=== PATIENT | male | born 1960 | race Two or more races ===

== ENCOUNTER 2019-12-12 08:50 | Outpatient (CLI) | payer OTHER | END 2019-12-12 09:00 | disposition home or self-care (01) | LOC: LAB 08:50 | DX: N20.0 Calculus of kidney (principal) ==

== ENCOUNTER → 2019-12-12 | Outpatient (CLI) | payer OTHER | END | disposition home or self-care (01) | LOC: MRI 08:08 | DX: R10.13 Epigastric pain (principal); R19.5 Other fecal abnormalities; K62.5 Hemorrhage of anus and rectum; Z86.010 Personal history of colon polyps; R63.4 Abnormal weight loss | CPT/HCPCS: 74183 ==

== ENCOUNTER → 2020-01-30 06:36 | Outpatient (CLI) | payer OTHER ==
[~2020-01-30 06:36] MED LIST: OMEPRAZOLE40 MG
== END | disposition home or self-care (01) ==
LOC: LAB 06:36
DX: D50.8 Other iron deficiency anemias (principal); I10 Essential (primary) hypertension; D68.8 Other specified coagulation defects; D69.1 Qualitative platelet defects; R97.8 Other abnormal tumor markers; C25.9 Malignant neoplasm of pancreas, unspecified; R97.0 Elevated carcinoembryonic antigen [CEA]; R97.20 Elevated prostate specific antigen [PSA]; R77.2 Abnormality of alphafetoprotein; B20 Human immunodeficiency virus [HIV] disease; K74.69 Other cirrhosis of liver; B18.2 Chronic viral hepatitis C; K29.70 Gastritis, unspecified, without bleeding

== ENCOUNTER 2020-02-03 05:47 | Emergency (ER) | payer OTHER ==
[~2020-02-03] VITALS: Ht 175.3 cm; Wt 74.8 kg
[2020-02-03] MEDS ORDERED: OMEPRAZOLE40 MG (06:04)
== END 2020-02-03 18:28 | disposition home or self-care (01) ==
LOC: ER 05:47
DX: R10.84 Generalized abdominal pain (principal); R06.02 Shortness of breath

== ENCOUNTER 2020-02-09 11:06 | Emergency (ER) | payer OTHER ==
[~2020-02-09] VITALS: Ht 152.4 cm; Wt 73.5 kg
== END 2020-02-09 14:34 | disposition home or self-care (01) ==
LOC: ER 11:06
DX: R10.84 Generalized abdominal pain (principal)

== ENCOUNTER 2020-04-04 08:33 | Outpatient (CLI) | payer OTHER | END 2020-04-04 08:43 | disposition home or self-care (01) | LOC: LAB 08:33 | DX: D50.8 Other iron deficiency anemias (principal); I10 Essential (primary) hypertension; C25.9 Malignant neoplasm of pancreas, unspecified; R97.8 Other abnormal tumor markers; R97.0 Elevated carcinoembryonic antigen [CEA]; R77.2 Abnormality of alphafetoprotein; C22.0 Liver cell carcinoma; K74.69 Other cirrhosis of liver; B18.2 Chronic viral hepatitis C; K29.70 Gastritis, unspecified, without bleeding; R59.1 Generalized enlarged lymph nodes ==

== ENCOUNTER 2020-04-17 05:55 | Day surgery (SDC) | payer OTHER ==
[~2020-04-17 05:55] MED LIST changes: +CARAFATE1 GM PO; +MORPHABOND ER30 MG PO; +NEXAVAR200 MG PO; +OXYCOD PO; +ZOFRAN8 MG PO
== END 2020-04-17 14:40 | disposition home or self-care (01) ==
LOC: CIR.AMB 05:55
DX: C22.0 Liver cell carcinoma (principal)
CPT/HCPCS: 36561; C1751

== ENCOUNTER → 2020-05-25 08:51 | Outpatient (CLI) | payer OTHER | END | disposition home or self-care (01) | LOC: LAB 08:51 | PROVIDERS: ATTEND Internal Medicine Hematology & Oncology | DX: D50.8 Other iron deficiency anemias (principal); I10 Essential (primary) hypertension ==

== ENCOUNTER → 2020-06-18 10:12 | Outpatient (CLI) | payer OTHER | END | disposition home or self-care (01) | LOC: LAB 10:12 | PROVIDERS: ATTEND Internal Medicine Hematology & Oncology | DX: D50.8 Other iron deficiency anemias (principal); I10 Essential (primary) hypertension; R97.0 Elevated carcinoembryonic antigen [CEA]; R97.8 Other abnormal tumor markers; R77.2 Abnormality of alphafetoprotein; C22.0 Liver cell carcinoma; K74.69 Other cirrhosis of liver; B18.2 Chronic viral hepatitis C; K29.70 Gastritis, unspecified, without bleeding; R59.1 Generalized enlarged lymph nodes ==

== ENCOUNTER 2020-07-12 10:29 | Outpatient (CLI) | payer OTHER | END 2020-07-12 10:35 | disposition home or self-care (01) | LOC: LAB 10:29 | PROVIDERS: ATTEND Internal Medicine Hematology & Oncology | DX: D50.8 Other iron deficiency anemias (principal); I10 Essential (primary) hypertension; C22.0 Liver cell carcinoma; C78.6 Secondary malignant neoplasm of retroperitoneum and peritoneum; C78.39 Secondary malignant neoplasm of other respiratory organs; K74.69 Other cirrhosis of liver; B18.2 Chronic viral hepatitis C; K29.70 Gastritis, unspecified, without bleeding; R59.1 Generalized enlarged lymph nodes ==

== ENCOUNTER 2020-07-24 12:30 | Emergency (ER) | payer OTHER ==
[~2020-07-24] VITALS: Ht 175.3 cm; Wt 59.0 kg
== END 2020-07-24 19:16 | disposition home or self-care (01) ==
LOC: ER 12:30
DX: R10.13 Epigastric pain (principal)

== ENCOUNTER 2020-07-28 10:13 | Emergency (ER) | payer OTHER ==
[~2020-07-28] VITALS: Ht 175.3 cm; Wt 63.5 kg
== END 2020-07-28 16:27 | disposition home or self-care (01) ==
LOC: ER 10:13
DX: K29.00 Acute gastritis without bleeding (principal); C22.8 Malignant neoplasm of liver, primary, unspecified as to type; C79.9 Secondary malignant neoplasm of unspecified site

== ENCOUNTER → 2020-08-17 | Outpatient (CLI) | payer OTHER | END | disposition home or self-care (01) | LOC: LAB 10:18 | PROVIDERS: ATTEND Internal Medicine Hematology & Oncology | DX: D50.8 Other iron deficiency anemias (principal); I10 Essential (primary) hypertension; R97.0 Elevated carcinoembryonic antigen [CEA]; R97.8 Other abnormal tumor markers; R77.2 Abnormality of alphafetoprotein; C22.0 Liver cell carcinoma; C78.6 Secondary malignant neoplasm of retroperitoneum and peritoneum; C78.39 Secondary malignant neoplasm of other respiratory organs; K74.69 Other cirrhosis of liver; B18.2 Chronic viral hepatitis C; K29.70 Gastritis, unspecified, without bleeding; R59.1 Generalized enlarged lymph nodes ==

== ENCOUNTER 2020-09-25 11:02 | Outpatient (CLI) | payer OTHER | END 2020-09-25 11:08 | disposition home or self-care (01) | LOC: LAB 11:02 | PROVIDERS: ATTEND Internal Medicine Hematology & Oncology | DX: D50.8 Other iron deficiency anemias (principal); I10 Essential (primary) hypertension; R97.0 Elevated carcinoembryonic antigen [CEA]; R97.8 Other abnormal tumor markers; R77.2 Abnormality of alphafetoprotein; C22.0 Liver cell carcinoma; C78.6 Secondary malignant neoplasm of retroperitoneum and peritoneum; C78.39 Secondary malignant neoplasm of other respiratory organs; K74.69 Other cirrhosis of liver; B18.2 Chronic viral hepatitis C; K29.60 Other gastritis without bleeding; R59.1 Generalized enlarged lymph nodes ==

== ENCOUNTER 2020-10-03 08:43 | Outpatient (CLI) | payer OTHER | END 2020-10-03 15:00 | disposition home or self-care (01) | LOC: LAB 08:43 | PROVIDERS: ATTEND Internal Medicine Cardiovascular Disease | DX: I11.9 Hypertensive heart disease without heart failure (principal) ==

== ENCOUNTER 2020-12-24 06:31 | Outpatient (CLI) | payer OTHER | END 2020-12-24 06:45 | disposition home or self-care (01) | LOC: LAB 06:31 | PROVIDERS: ATTEND Internal Medicine Hematology & Oncology | DX: D50.8 Other iron deficiency anemias (principal); C22.0 Liver cell carcinoma; C78.6 Secondary malignant neoplasm of retroperitoneum and peritoneum; C78.39 Secondary malignant neoplasm of other respiratory organs; K74.69 Other cirrhosis of liver; B18.2 Chronic viral hepatitis C; K29.70 Gastritis, unspecified, without bleeding; R59.1 Generalized enlarged lymph nodes; R77.2 Abnormality of alphafetoprotein; I10 Essential (primary) hypertension; R74.02 Elevation of levels of lactic acid dehydrogenase [LDH]; K76.89 Other specified diseases of liver; R97.0 Elevated carcinoembryonic antigen [CEA]; R97.8 Other abnormal tumor markers ==

== ENCOUNTER 2021-02-05 13:27 | Inpatient (IN) | payer OTHER ==
[~2021-02-05] VITALS: Ht 172.7 cm; Wt 63.0 kg
--- NOTE | 2021-02-05 13:44 | NUR ---
PACIENTE ALERTA Y ORIENTADO EN PERSONA Y LUGAR REFIERE MAS DE 10 EPISODIOS DE VOMITOS QUE INICIARON EL 2020. PACIENTE TIENE CANCER METASTIZADO Y LAGOS ULTIMA QUIMIOTERAPIA FUE EL 2020. PACIENTE DE DRA. ARVIND BURKS Y DR. MANN. AL MOMENTO DE TRIAGE PACIENTE PRESENTO 44 MG/DL DE DEXTRO. EN EL TRIAGE PACIENTE NO PUDO BRINDAR LOS MEDICAMENTOS QUE ANGELA DIARIOS. SE ENCONTRABA SOLO AL MOMENTO DEL ESTIMADO INICIAL. SE PASA A PACIENTE A AREA DE OBSERVACION.
--- NOTE | 2021-02-05 14:33 | NUR ---
PACIENTE EVALUADO POR EL MEDICO EN [place], SE VERIFICAN LAS ORDENES MEDICAS Y SE LE ORIENTA AL PACIENTE SOBRE LAS MISMAS, REFIERE ENTENDER. SE LE ADMINISTRAN LOS MEDICAMENTOS, SE LE REALIZAN LAS MUESTRAS DE ELÍAS, FARAZ LAS ORDENES MEDICAS.
--- NOTE | 2021-02-05 14:47 | NUR ---
SE LE ADMINISTRAN LOS MEDICAMENTOS SEGUB LA ORDENES MEDICAS.
[2021-02-06] MEDS ORDERED: ROXICODONE5 MG (08:20)
[2021-02-06] MEDS ORDERED: CLOTRIMAZOLE10 MG (08:20)
[2021-02-23] MEDS ORDERED: LEVOTHYROXINE100 MCG PO (11:08)
[2021-02-23] MEDS ORDERED: GABAPENTIN100 MG PO ×2 (11:08→13:42)
[2021-02-23] MEDS ORDERED: INTEGRA CAPSUL1 EACH PO ×2 (11:09→13:42)
[2021-02-23] MEDS ORDERED: BUMETANIDE1 MG PO ×2 (11:10→13:42)
[2021-02-23] MEDS ORDERED: SYNTHROID100 MCG PO (13:42)
== END 2021-02-23 11:51 | disposition left against medical advice (07) | DRG 683 ==
LOC: ER 13:27 → SEC-K 20:49 → MEDI 02-06 18:19
PROVIDERS: ADMIT Internal Medicine; ATTEND Internal Medicine
PROC: 4A12X4Z Monitoring of Cardiac Electrical Activity, External Approach (ICD-10-PCS; principal; 2021-02-10)
PROC: 02HV33Z Insertion of Infusion Device into Superior Vena Cava, Percutaneous Approach (ICD-10-PCS; 2021-02-17)
PROC: 3E043KZ Introduction of Other Diagnostic Substance into Central Vein, Percutaneous Approach (ICD-10-PCS; 2021-02-18)
PROC: B24BYZZ Ultrasonography of Heart with Aorta using Other Contrast (ICD-10-PCS; 2021-02-19)
DX: N17.8 Other acute kidney failure (principal); I42.7 Cardiomyopathy due to drug and external agent; C22.0 Liver cell carcinoma; E27.40 Unspecified adrenocortical insufficiency; T45.1X5A Adverse effect of antineoplastic and immunosuppressive drugs, initial encounter; I11.9 Hypertensive heart disease without heart failure; K29.00 Acute gastritis without bleeding; E86.0 Dehydration; E16.2 Hypoglycemia, unspecified; E03.2 Hypothyroidism due to medicaments and other exogenous substances; D69.6 Thrombocytopenia, unspecified; R11.2 Nausea with vomiting, unspecified

== ENCOUNTER → 2021-03-25 09:06 | Outpatient (CLI) | payer OTHER ==
[~2021-03-25 09:06] MED LIST changes: +BUMETANIDE1 MG PO; +CLOTRIMAZOLE10 MG; +GABAPENTIN100 MG PO; +INTEGRA CAPSUL1 EACH PO; +LEVOTHYROXINE100 MCG PO; +ROXICODONE5 MG; +SYNTHROID100 MCG PO
== END | disposition home or self-care (01) ==
LOC: LAB 09:06
PROVIDERS: ATTEND Internal Medicine Hematology & Oncology
DX: C22.0 Liver cell carcinoma (principal); C78.6 Secondary malignant neoplasm of retroperitoneum and peritoneum; C78.39 Secondary malignant neoplasm of other respiratory organs; K74.69 Other cirrhosis of liver; B18.2 Chronic viral hepatitis C; K29.70 Gastritis, unspecified, without bleeding; I89.9 Noninfective disorder of lymphatic vessels and lymph nodes, unspecified; R59.1 Generalized enlarged lymph nodes

== ENCOUNTER → 2021-04-26 08:44 | Outpatient (CLI) | payer OTHER | END | disposition home or self-care (01) | LOC: LAB 08:44 | PROVIDERS: ATTEND Internal Medicine Hematology & Oncology | DX: D50.8 Other iron deficiency anemias (principal); I10 Essential (primary) hypertension; R74.02 Elevation of levels of lactic acid dehydrogenase [LDH]; K76.89 Other specified diseases of liver; R97.0 Elevated carcinoembryonic antigen [CEA]; R97.8 Other abnormal tumor markers; R77.2 Abnormality of alphafetoprotein; C22.0 Liver cell carcinoma; C78.6 Secondary malignant neoplasm of retroperitoneum and peritoneum; C78.39 Secondary malignant neoplasm of other respiratory organs; K74.69 Other cirrhosis of liver; B18.2 Chronic viral hepatitis C; K29.70 Gastritis, unspecified, without bleeding; I89.9 Noninfective disorder of lymphatic vessels and lymph nodes, unspecified ==

== ENCOUNTER → 2021-05-20 07:30 | Outpatient (CLI) | payer OTHER | END | disposition home or self-care (01) | LOC: LAB 07:30 | PROVIDERS: ATTEND Internal Medicine Hematology & Oncology | DX: D50.8 Other iron deficiency anemias (principal); I10 Essential (primary) hypertension; R47.02 Dysphasia; K76.89 Other specified diseases of liver; D69.6 Thrombocytopenia, unspecified; C22.0 Liver cell carcinoma; C78.6 Secondary malignant neoplasm of retroperitoneum and peritoneum; C78.39 Secondary malignant neoplasm of other respiratory organs; K74.69 Other cirrhosis of liver; B18.2 Chronic viral hepatitis C; K29.70 Gastritis, unspecified, without bleeding; I89.9 Noninfective disorder of lymphatic vessels and lymph nodes, unspecified; R59.1 Generalized enlarged lymph nodes ==

== ENCOUNTER → 2021-07-03 09:35 | Outpatient (CLI) | payer OTHER | END | disposition home or self-care (01) | LOC: LAB 09:35 | PROVIDERS: ATTEND Internal Medicine Hematology & Oncology | DX: D50.8 Other iron deficiency anemias (principal); I10 Essential (primary) hypertension; R74.02 Elevation of levels of lactic acid dehydrogenase [LDH]; K76.89 Other specified diseases of liver; D69.49 Other primary thrombocytopenia; E78.2 Mixed hyperlipidemia; E03.8 Other specified hypothyroidism; E27.1 Primary adrenocortical insufficiency; C22.0 Liver cell carcinoma; C78.6 Secondary malignant neoplasm of retroperitoneum and peritoneum; C78.39 Secondary malignant neoplasm of other respiratory organs; K74.69 Other cirrhosis of liver; B18.2 Chronic viral hepatitis C; K29.70 Gastritis, unspecified, without bleeding; R59.1 Generalized enlarged lymph nodes ==

== ENCOUNTER 2021-07-26 08:28 | Outpatient (CLI) | payer OTHER | END 2021-07-26 15:00 | disposition home or self-care (01) | LOC: LAB 08:28 | PROVIDERS: ATTEND Internal Medicine Hematology & Oncology | DX: D50.8 Other iron deficiency anemias (principal); I10 Essential (primary) hypertension; R74.02 Elevation of levels of lactic acid dehydrogenase [LDH]; K76.89 Other specified diseases of liver; D69.6 Thrombocytopenia, unspecified; R97.0 Elevated carcinoembryonic antigen [CEA]; R97.8 Other abnormal tumor markers; R77.2 Abnormality of alphafetoprotein; C22.0 Liver cell carcinoma; C78.6 Secondary malignant neoplasm of retroperitoneum and peritoneum; C78.39 Secondary malignant neoplasm of other respiratory organs; K74.69 Other cirrhosis of liver; B18.2 Chronic viral hepatitis C; K29.70 Gastritis, unspecified, without bleeding; R59.1 Generalized enlarged lymph nodes; E27.1 Primary adrenocortical insufficiency ==

== ENCOUNTER → 2021-08-23 07:42 | Outpatient (CLI) | payer OTHER | END | disposition home or self-care (01) | LOC: LAB 07:42 | PROVIDERS: ATTEND Internal Medicine Hematology & Oncology | DX: D50.8 Other iron deficiency anemias (principal); I10 Essential (primary) hypertension; R74.02 Elevation of levels of lactic acid dehydrogenase [LDH]; K76.89 Other specified diseases of liver; D69.49 Other primary thrombocytopenia; D51.8 Other vitamin B12 deficiency anemias; E03.8 Other specified hypothyroidism; C22.0 Liver cell carcinoma; C78.6 Secondary malignant neoplasm of retroperitoneum and peritoneum; C78.39 Secondary malignant neoplasm of other respiratory organs; B18.2 Chronic viral hepatitis C; K29.70 Gastritis, unspecified, without bleeding; R59.1 Generalized enlarged lymph nodes; E27.1 Primary adrenocortical insufficiency ==

== ENCOUNTER → 2021-09-20 09:00 | Outpatient (CLI) | payer OTHER | END | disposition home or self-care (01) | LOC: LAB 09:00 | PROVIDERS: ATTEND Internal Medicine Hematology & Oncology | DX: D50.8 Other iron deficiency anemias (principal); I10 Essential (primary) hypertension; R74.02 Elevation of levels of lactic acid dehydrogenase [LDH]; K76.89 Other specified diseases of liver; E03.8 Other specified hypothyroidism; R97.0 Elevated carcinoembryonic antigen [CEA]; R97.8 Other abnormal tumor markers; R77.2 Abnormality of alphafetoprotein; C22.0 Liver cell carcinoma; C78.6 Secondary malignant neoplasm of retroperitoneum and peritoneum; K74.69 Other cirrhosis of liver; B18.2 Chronic viral hepatitis C; K29.70 Gastritis, unspecified, without bleeding; I89.8 Other specified noninfective disorders of lymphatic vessels and lymph nodes; E27.1 Primary adrenocortical insufficiency ==

== ENCOUNTER 2021-10-18 06:43 | Outpatient (CLI) | payer OTHER | END 2021-10-18 06:53 | disposition home or self-care (01) | LOC: LAB 06:43 | PROVIDERS: ATTEND Internal Medicine Hematology & Oncology | DX: I10 Essential (primary) hypertension (principal); D50.8 Other iron deficiency anemias; R74.02 Elevation of levels of lactic acid dehydrogenase [LDH]; K76.89 Other specified diseases of liver; D69.6 Thrombocytopenia, unspecified; R97.0 Elevated carcinoembryonic antigen [CEA]; R97.8 Other abnormal tumor markers; R77.2 Abnormality of alphafetoprotein; C22.0 Liver cell carcinoma; C78.6 Secondary malignant neoplasm of retroperitoneum and peritoneum; C78.39 Secondary malignant neoplasm of other respiratory organs; K74.69 Other cirrhosis of liver; B18.2 Chronic viral hepatitis C; K29.70 Gastritis, unspecified, without bleeding; I89.8 Other specified noninfective disorders of lymphatic vessels and lymph nodes; E27.1 Primary adrenocortical insufficiency ==

== ENCOUNTER 2021-11-28 08:41 | Outpatient (CLI) | payer OTHER | END 2021-11-28 08:53 | disposition home or self-care (01) | LOC: LAB 08:41 | PROVIDERS: ATTEND Internal Medicine Hematology & Oncology | DX: C22.0 Liver cell carcinoma (principal); C78.6 Secondary malignant neoplasm of retroperitoneum and peritoneum; C78.39 Secondary malignant neoplasm of other respiratory organs; K74.69 Other cirrhosis of liver; B18.2 Chronic viral hepatitis C; K29.70 Gastritis, unspecified, without bleeding; I89.8 Other specified noninfective disorders of lymphatic vessels and lymph nodes; R59.1 Generalized enlarged lymph nodes; E27.1 Primary adrenocortical insufficiency; D50.8 Other iron deficiency anemias; R79.89 Other specified abnormal findings of blood chemistry; I10 Essential (primary) hypertension; R74.02 Elevation of levels of lactic acid dehydrogenase [LDH]; K76.89 Other specified diseases of liver; D51.8 Other vitamin B12 deficiency anemias; E78.2 Mixed hyperlipidemia; E03.8 Other specified hypothyroidism ==

== ENCOUNTER 2022-01-22 09:17 | Outpatient (CLI) | payer OTHER | END 2022-01-22 09:18 | disposition home or self-care (01) | LOC: LAB 09:17 | PROVIDERS: ATTEND Internal Medicine Hematology & Oncology | DX: D50.8 Other iron deficiency anemias (principal); R79.9 Abnormal finding of blood chemistry, unspecified; I10 Essential (primary) hypertension; R74.02 Elevation of levels of lactic acid dehydrogenase [LDH]; K76.89 Other specified diseases of liver; E03.8 Other specified hypothyroidism; C22.0 Liver cell carcinoma; C78.6 Secondary malignant neoplasm of retroperitoneum and peritoneum; K74.69 Other cirrhosis of liver; B18.2 Chronic viral hepatitis C; K29.70 Gastritis, unspecified, without bleeding; I89.9 Noninfective disorder of lymphatic vessels and lymph nodes, unspecified; R59.1 Generalized enlarged lymph nodes; E27.1 Primary adrenocortical insufficiency ==

== ENCOUNTER 2022-02-15 07:19 | Outpatient (CLI) | payer OTHER | END 2022-02-15 09:12 | disposition home or self-care (01) | LOC: LAB 07:19 | PROVIDERS: ATTEND Internal Medicine Hematology & Oncology | DX: D50.8 Other iron deficiency anemias (principal); R79.9 Abnormal finding of blood chemistry, unspecified; I10 Essential (primary) hypertension; R74.02 Elevation of levels of lactic acid dehydrogenase [LDH]; K76.89 Other specified diseases of liver; E03.8 Other specified hypothyroidism; R97.0 Elevated carcinoembryonic antigen [CEA]; R97.8 Other abnormal tumor markers; R77.2 Abnormality of alphafetoprotein; C22.0 Liver cell carcinoma; C78.6 Secondary malignant neoplasm of retroperitoneum and peritoneum; C78.39 Secondary malignant neoplasm of other respiratory organs; K74.69 Other cirrhosis of liver; B18.2 Chronic viral hepatitis C; K29.70 Gastritis, unspecified, without bleeding; I89.9 Noninfective disorder of lymphatic vessels and lymph nodes, unspecified; R59.1 Generalized enlarged lymph nodes; E27.1 Primary adrenocortical insufficiency ==

== ENCOUNTER 2022-03-17 06:59 | Outpatient (CLI) | payer OTHER | END 2022-03-17 07:10 | disposition home or self-care (01) | LOC: LAB 06:59 | PROVIDERS: ATTEND Internal Medicine Hematology & Oncology | DX: C22.0 Liver cell carcinoma (principal); C78.6 Secondary malignant neoplasm of retroperitoneum and peritoneum; C78.39 Secondary malignant neoplasm of other respiratory organs; K74.69 Other cirrhosis of liver; B18.2 Chronic viral hepatitis C; K29.70 Gastritis, unspecified, without bleeding; I89.9 Noninfective disorder of lymphatic vessels and lymph nodes, unspecified; R59.1 Generalized enlarged lymph nodes; E27.1 Primary adrenocortical insufficiency ==

== ENCOUNTER 2022-04-25 07:03 | Outpatient (CLI) | payer OTHER | END 2022-04-25 07:20 | disposition home or self-care (01) | LOC: LAB 07:03 | PROVIDERS: ATTEND Internal Medicine Hematology & Oncology | DX: D50.8 Other iron deficiency anemias (principal); I10 Essential (primary) hypertension; R74.02 Elevation of levels of lactic acid dehydrogenase [LDH]; E03.8 Other specified hypothyroidism; K76.89 Other specified diseases of liver; R97.0 Elevated carcinoembryonic antigen [CEA]; R77.2 Abnormality of alphafetoprotein ==

== ENCOUNTER 2022-05-20 06:52 | Outpatient (CLI) | payer OTHER | END 2022-05-20 07:01 | disposition home or self-care (01) | LOC: LAB 06:52 | PROVIDERS: ATTEND Internal Medicine Hematology & Oncology | DX: C22.0 Liver cell carcinoma (principal); C78.6 Secondary malignant neoplasm of retroperitoneum and peritoneum; C78.39 Secondary malignant neoplasm of other respiratory organs; K74.69 Other cirrhosis of liver; B18.2 Chronic viral hepatitis C; K29.70 Gastritis, unspecified, without bleeding; I89.9 Noninfective disorder of lymphatic vessels and lymph nodes, unspecified; R59.1 Generalized enlarged lymph nodes; E27.1 Primary adrenocortical insufficiency ==

== ENCOUNTER 2022-06-05 16:11 | Inpatient (IN) | payer OTHER ==
[~2022-06-05] VITALS: Ht 175.3 cm; Wt 83.5 kg
[2022-06-05] MEDS ORDERED: LOSARTAN 12.5 MG (16:57)
[2022-06-05] MEDS ORDERED: PERCOSET (16:58)
[2022-06-09] MEDS ORDERED: ATARAX25 MG (10:06)
[2022-06-09] MEDS ORDERED: INTEGRA F CAPS1 EAC1 (10:07)
[2022-06-09] MEDS ORDERED: METHYLPREDNISOLO4 MG (10:07)
[2022-06-09] MEDS ORDERED: LOSARTAN-HCTZ1 EACH (10:07)
[2022-06-09] MEDS ORDERED: PREDNISONE10 M2 (10:07)
[2022-06-09] MEDS ORDERED: OXYC1TAB9 (10:07)
[2022-06-09] MEDS ORDERED: CYANOCOBAL1000 MCG/1 (10:08)
[2022-06-09] MEDS ORDERED: TRIAMCINOLONE A15 G1 (10:08)
[2022-06-09] MEDS ORDERED: FAMOTIDINE20 MG (10:09)
[2022-06-09] MEDS ORDERED: MONTELUKAST SOD10 MG (10:09)
== END 2022-06-09 22:39 | disposition home or self-care (01) | DRG 643 ==
LOC: ER 16:11 → SURH 06-06 10:08 → ICU-2 06-06 10:08 → MEDJ 06-06 10:08 → SEC-K 06-06 10:08 → MEDJ 06-06 11:36 → SEC-K 06-06 11:56 → MEDJ 06-06 15:41 → ICU-2 06-06 22:19 → SURH 06-08 14:03
PROVIDERS: ADMIT Internal Medicine; ATTEND Internal Medicine
DX: E27.49 Other adrenocortical insufficiency (principal); A41.9 Sepsis, unspecified organism; N17.8 Other acute kidney failure; C22.9 Malignant neoplasm of liver, not specified as primary or secondary; C22.0 Liver cell carcinoma; I95.9 Hypotension, unspecified; E27.2 Addisonian crisis; E86.0 Dehydration; L40.8 Other psoriasis; E87.8 Other disorders of electrolyte and fluid balance, not elsewhere classified; R41.82 Altered mental status, unspecified; E03.8 Other specified hypothyroidism; D72.828 Other elevated white blood cell count; D72.9 Disorder of white blood cells, unspecified; Z20.822 Contact with and (suspected) exposure to COVID-19; I12.9 Hypertensive chronic kidney disease with stage 1 through stage 4 chronic kidney disease, or unspecified chronic kidney disease; N18.9 Chronic kidney disease, unspecified; Z92.21 Personal history of antineoplastic chemotherapy; D70.1 Agranulocytosis secondary to cancer chemotherapy

== ENCOUNTER 2022-07-25 07:15 | Outpatient (CLI) | payer OTHER ==
[~2022-07-25 07:15] MED LIST changes: +ATARAX25 MG; +CYANOCOBAL1000 MCG/1; +FAMOTIDINE20 MG; +INTEGRA F CAPS1 EAC1; +LOSARTAN 12.5 MG; +LOSARTAN-HCTZ1 EACH; +METHYLPREDNISOLO4 MG; +MONTELUKAST SOD10 MG; +OXYC1TAB9; +PERCOSET; +PREDNISONE10 M2; +TRIAMCINOLONE A15 G1
== END 2022-07-25 07:29 | disposition home or self-care (01) ==
LOC: LAB 07:15
PROVIDERS: ATTEND Internal Medicine Hematology & Oncology
DX: D50.8 Other iron deficiency anemias (principal); R79.9 Abnormal finding of blood chemistry, unspecified; I10 Essential (primary) hypertension; R74.02 Elevation of levels of lactic acid dehydrogenase [LDH]; K76.89 Other specified diseases of liver; R97.8 Other abnormal tumor markers; R97.0 Elevated carcinoembryonic antigen [CEA]; R77.2 Abnormality of alphafetoprotein; C22.0 Liver cell carcinoma; C78.6 Secondary malignant neoplasm of retroperitoneum and peritoneum; C78.39 Secondary malignant neoplasm of other respiratory organs; K74.69 Other cirrhosis of liver; B18.2 Chronic viral hepatitis C; K29.70 Gastritis, unspecified, without bleeding; I89.9 Noninfective disorder of lymphatic vessels and lymph nodes, unspecified; R59.1 Generalized enlarged lymph nodes; E27.1 Primary adrenocortical insufficiency; B17.10 Acute hepatitis C without hepatic coma

== ENCOUNTER 2022-08-11 06:40 | Outpatient (CLI) | payer OTHER | END 2022-08-11 06:41 | disposition home or self-care (01) | LOC: LAB 06:40 | DX: Z11.4 Encounter for screening for human immunodeficiency virus [HIV] (principal); Z11.3 Encounter for screening for infections with a predominantly sexual mode of transmission; R74.01 Elevation of levels of liver transaminase levels ==

== ENCOUNTER 2022-09-02 07:19 | Outpatient (CLI) | payer OTHER | END 2022-09-02 07:20 | disposition home or self-care (01) | LOC: LAB 07:19 | PROVIDERS: ATTEND Internal Medicine Hematology & Oncology | DX: D50.8 Other iron deficiency anemias (principal); R79.9 Abnormal finding of blood chemistry, unspecified; I10 Essential (primary) hypertension; R74.02 Elevation of levels of lactic acid dehydrogenase [LDH]; K76.89 Other specified diseases of liver; R97.0 Elevated carcinoembryonic antigen [CEA]; E03.8 Other specified hypothyroidism; C22.0 Liver cell carcinoma; C78.6 Secondary malignant neoplasm of retroperitoneum and peritoneum; C78.39 Secondary malignant neoplasm of other respiratory organs; B18.2 Chronic viral hepatitis C; E27.1 Primary adrenocortical insufficiency; R59.1 Generalized enlarged lymph nodes ==

== ENCOUNTER 2022-09-16 07:05 | Outpatient (CLI) | payer OTHER | END 2022-09-16 07:06 | disposition home or self-care (01) | LOC: LAB 07:05 | DX: B18.2 Chronic viral hepatitis C (principal) ==

== ENCOUNTER 2022-09-19 06:30 | Outpatient (CLI) | payer OTHER | END 2022-09-19 06:42 | disposition home or self-care (01) | LOC: LAB 06:30 | PROVIDERS: ATTEND Internal Medicine Hematology & Oncology | DX: D50.8 Other iron deficiency anemias (principal); R79.9 Abnormal finding of blood chemistry, unspecified; I10 Essential (primary) hypertension; R74.02 Elevation of levels of lactic acid dehydrogenase [LDH]; K76.89 Other specified diseases of liver; E03.8 Other specified hypothyroidism; R97.0 Elevated carcinoembryonic antigen [CEA]; R97.8 Other abnormal tumor markers; R77.2 Abnormality of alphafetoprotein; C22.0 Liver cell carcinoma; C78.6 Secondary malignant neoplasm of retroperitoneum and peritoneum; C78.39 Secondary malignant neoplasm of other respiratory organs; K74.69 Other cirrhosis of liver; I89.9 Noninfective disorder of lymphatic vessels and lymph nodes, unspecified ==

== ENCOUNTER 2022-10-30 06:36 | Outpatient (CLI) | payer OTHER | END 2022-10-30 06:42 | disposition home or self-care (01) | LOC: LAB 06:36 | PROVIDERS: ATTEND Internal Medicine Hematology & Oncology | DX: D50.8 Other iron deficiency anemias (principal); R79.9 Abnormal finding of blood chemistry, unspecified; I10 Essential (primary) hypertension; R74.02 Elevation of levels of lactic acid dehydrogenase [LDH]; K76.89 Other specified diseases of liver; E03.8 Other specified hypothyroidism; R97.0 Elevated carcinoembryonic antigen [CEA]; R97.8 Other abnormal tumor markers; R77.2 Abnormality of alphafetoprotein; C22.0 Liver cell carcinoma; C78.6 Secondary malignant neoplasm of retroperitoneum and peritoneum; C78.39 Secondary malignant neoplasm of other respiratory organs; K74.69 Other cirrhosis of liver; B18.2 Chronic viral hepatitis C; K29.70 Gastritis, unspecified, without bleeding; I89.9 Noninfective disorder of lymphatic vessels and lymph nodes, unspecified; E27.1 Primary adrenocortical insufficiency ==

== ENCOUNTER 2022-12-02 08:19 | Outpatient (CLI) | payer OTHER | END 2022-12-02 08:20 | disposition home or self-care (01) | LOC: LAB 08:19 | PROVIDERS: ATTEND Internal Medicine Hematology & Oncology | DX: D50.8 Other iron deficiency anemias (principal); R79.9 Abnormal finding of blood chemistry, unspecified; I10 Essential (primary) hypertension; R74.02 Elevation of levels of lactic acid dehydrogenase [LDH]; K76.89 Other specified diseases of liver; E03.8 Other specified hypothyroidism; R97.0 Elevated carcinoembryonic antigen [CEA]; R97.8 Other abnormal tumor markers; R77.2 Abnormality of alphafetoprotein ==

== ENCOUNTER 2023-01-02 06:54 | Outpatient (CLI) | payer OTHER | END 2023-01-02 07:11 | disposition home or self-care (01) | LOC: LAB 06:54 | PROVIDERS: ATTEND Internal Medicine Hematology & Oncology | DX: D50.8 Other iron deficiency anemias (principal); R79.9 Abnormal finding of blood chemistry, unspecified; I10 Essential (primary) hypertension; R74.02 Elevation of levels of lactic acid dehydrogenase [LDH]; K76.89 Other specified diseases of liver; E03.8 Other specified hypothyroidism; R97.0 Elevated carcinoembryonic antigen [CEA]; R97.8 Other abnormal tumor markers; R77.2 Abnormality of alphafetoprotein; C22.0 Liver cell carcinoma; C78.6 Secondary malignant neoplasm of retroperitoneum and peritoneum; C78.39 Secondary malignant neoplasm of other respiratory organs; K74.69 Other cirrhosis of liver; B18.2 Chronic viral hepatitis C; K29.70 Gastritis, unspecified, without bleeding; I89.9 Noninfective disorder of lymphatic vessels and lymph nodes, unspecified; R59.1 Generalized enlarged lymph nodes; E27.1 Primary adrenocortical insufficiency ==

== ENCOUNTER 2023-01-30 06:46 | Outpatient (CLI) | payer OTHER | END 2023-01-30 06:54 | disposition home or self-care (01) | LOC: LAB 06:46 | PROVIDERS: ATTEND Internal Medicine Hematology & Oncology | DX: D50.8 Other iron deficiency anemias (principal); R79.9 Abnormal finding of blood chemistry, unspecified; I10 Essential (primary) hypertension; R74.02 Elevation of levels of lactic acid dehydrogenase [LDH]; K76.89 Other specified diseases of liver; R77.2 Abnormality of alphafetoprotein; C22.0 Liver cell carcinoma; C78.6 Secondary malignant neoplasm of retroperitoneum and peritoneum; C78.39 Secondary malignant neoplasm of other respiratory organs; K74.69 Other cirrhosis of liver; B18.2 Chronic viral hepatitis C; K29.70 Gastritis, unspecified, without bleeding; I89.9 Noninfective disorder of lymphatic vessels and lymph nodes, unspecified; R59.1 Generalized enlarged lymph nodes; E27.1 Primary adrenocortical insufficiency ==

== ENCOUNTER → 2023-02-27 06:42 | Outpatient (CLI) | payer OTHER | END | disposition home or self-care (01) | LOC: LAB 06:42 | PROVIDERS: ATTEND Internal Medicine Hematology & Oncology | DX: R76.11 Nonspecific reaction to tuberculin skin test without active tuberculosis (principal); D64.9 Anemia, unspecified; R74.02 Elevation of levels of lactic acid dehydrogenase [LDH]; Z11.59 Encounter for screening for other viral diseases; Z79.899 Other long term (current) drug therapy; D50.8 Other iron deficiency anemias; R79.9 Abnormal finding of blood chemistry, unspecified; I10 Essential (primary) hypertension; K76.89 Other specified diseases of liver; E03.8 Other specified hypothyroidism; R97.0 Elevated carcinoembryonic antigen [CEA]; R97.8 Other abnormal tumor markers; R77.2 Abnormality of alphafetoprotein; C22.0 Liver cell carcinoma; C78.6 Secondary malignant neoplasm of retroperitoneum and peritoneum; C78.39 Secondary malignant neoplasm of other respiratory organs; K74.69 Other cirrhosis of liver; B18.2 Chronic viral hepatitis C; K29.70 Gastritis, unspecified, without bleeding; I89.9 Noninfective disorder of lymphatic vessels and lymph nodes, unspecified; R59.1 Generalized enlarged lymph nodes; E27.1 Primary adrenocortical insufficiency ==

== ENCOUNTER 2023-03-25 09:47 | Outpatient (CLI) | payer OTHER ==
[2023-03-25] MEDS ORDERED: LEVOTHYROXINE25 MCG (11:16)
[2023-03-25] MEDS ORDERED: HYDRODIURIL12.5 MG (11:16)
[2023-03-25] MEDS ORDERED: CARVEDILOL ER40 MG (11:16)
[2023-03-25] MEDS ORDERED: COMPLEX B-1001 EACH (11:17)
[2023-03-25] MEDS ORDERED: PERCOCET 10-321 EACH (11:17)
== END 2023-03-25 09:48 | disposition home or self-care (01) ==
LOC: LAB 09:47
PROVIDERS: ATTEND Internal Medicine Hematology & Oncology
DX: D50.8 Other iron deficiency anemias (principal); R79.9 Abnormal finding of blood chemistry, unspecified; I10 Essential (primary) hypertension; R74.02 Elevation of levels of lactic acid dehydrogenase [LDH]; K76.89 Other specified diseases of liver; E03.8 Other specified hypothyroidism; R97.0 Elevated carcinoembryonic antigen [CEA]; R97.8 Other abnormal tumor markers; R77.2 Abnormality of alphafetoprotein; C22.0 Liver cell carcinoma; C78.6 Secondary malignant neoplasm of retroperitoneum and peritoneum; C78.39 Secondary malignant neoplasm of other respiratory organs; K74.69 Other cirrhosis of liver; B18.2 Chronic viral hepatitis C; K29.70 Gastritis, unspecified, without bleeding; I89.9 Noninfective disorder of lymphatic vessels and lymph nodes, unspecified; R59.1 Generalized enlarged lymph nodes; E27.1 Primary adrenocortical insufficiency

== ENCOUNTER 2023-03-25 10:39 | Inpatient (IN) | payer OTHER ==
[~2023-03-25] VITALS: Ht 175.3 cm; Wt 79.4 kg
--- NOTE | 2023-03-25 10:57 | NUR ---
SE LLAMA PTE EN LA CURT DE ESPERA EL CUAL NO RESPONDE
[2023-03-25] MEDS ORDERED: CARVEDILOL ER40 MG (11:16)
[2023-03-25] MEDS ORDERED: HYDRODIURIL12.5 MG (11:16)
[2023-03-25] MEDS ORDERED: LEVOTHYROXINE25 MCG (11:16)
[2023-03-25] MEDS ORDERED: COMPLEX B-1001 EACH (11:17)
[2023-03-25] MEDS ORDERED: PERCOCET 10-321 EACH (11:17)
--- NOTE | 2023-03-25 11:20 | NUR ---
PACIENTE ALERTA Y ORIENATDO POR 3 ESFERAS REFIERE FALTA DE AIRE Y DOLOR ABDOMINAL. SE MIDEN S/V. SE OBSERVA SATURACION EN ELÍAS EN 98%. SE ACOMODA PACIENTE EN HABITACION DE AISLAMIENTO.
--- NOTE | 2023-03-25 12:11 | NUR ---
PTE EVALUADO POR EL DR FOLEY QUIEN ORDENA EL [place]. MR Rhonda FLORES ORIENTA SOBRE EL [place] ORDENADO, LO CUAL REFIERE ENTENDER, REALIZA PRUEBAS DE LABORATORIO Y ADMINISTRA MEDICAMENTOS FARAZ ORDEN MEDICA Y SIGUIENDO MEDIDAS ASEPTICAS.
--- NOTE | 2023-03-25 12:36 | NUR ---
TERAPIAS RESPIRATORIAS NOTIFICADAS A PERSONAL DE TUR[place] (MS BURKS).
== END 2023-03-30 20:35 | disposition designated cancer center or children's hospital (05) | DRG 299 ==
LOC: ER 10:39 → MEDJ 19:44 → SEC-K 19:44 → MEDJ 03-26 08:54
PROVIDERS: ADMIT Specialist; ATTEND Specialist
PROC: BW24YZZ Computerized Tomography (CT Scan) of Chest and Abdomen using Other Contrast (ICD-10-PCS; 2023-03-25)
PROC: BW21ZZZ Computerized Tomography (CT Scan) of Abdomen and Pelvis (ICD-10-PCS; 2023-03-25)
PROC: B24BZZZ Ultrasonography of Heart with Aorta (ICD-10-PCS; principal; 2023-03-26)
PROC: 02HV33Z Insertion of Infusion Device into Superior Vena Cava, Percutaneous Approach (ICD-10-PCS; 2023-03-27)
DX: I87.1 Compression of vein (principal); U07.1 COVID-19; C22.0 Liver cell carcinoma; N17.9 Acute kidney failure, unspecified; C78.89 Secondary malignant neoplasm of other digestive organs; C79.51 Secondary malignant neoplasm of bone; C79.89 Secondary malignant neoplasm of other specified sites; I82.210 Acute embolism and thrombosis of superior vena cava; I50.30 Unspecified diastolic (congestive) heart failure; B19.20 Unspecified viral hepatitis C without hepatic coma; L40.8 Other psoriasis; Z74.01 Bed confinement status; Z95.828 Presence of other vascular implants and grafts; I11.0 Hypertensive heart disease with heart failure

== ENCOUNTER 2023-04-03 10:26 | Emergency (ER) | payer OTHER ==
[~2023-04-03] VITALS: Ht 175.3 cm; Wt 77.6 kg
[~2023-04-03 10:26] MED LIST changes: +CARVEDILOL ER40 MG; +COMPLEX B-1001 EACH; +HYDRODIURIL12.5 MG; +LEVOTHYROXINE25 MCG; +PERCOCET 10-321 EACH
== END 2023-04-03 16:27 | disposition home or self-care (01) ==
LOC: ER 10:26
DX: R10.84 Generalized abdominal pain (principal); I10 Essential (primary) hypertension; C22.0 Liver cell carcinoma; C79.51 Secondary malignant neoplasm of bone; C79.9 Secondary malignant neoplasm of unspecified site; Z88.8 Allergy status to other drugs, medicaments and biological substances

== ENCOUNTER 2023-04-08 11:29 | Outpatient (CLI) | payer OTHER | END 2023-04-08 11:52 | disposition home or self-care (01) | LOC: RX STUDY 11:29 | PROVIDERS: ATTEND Internal Medicine Hematology & Oncology | DX: C22.0 Liver cell carcinoma (principal); C78.6 Secondary malignant neoplasm of retroperitoneum and peritoneum; C78.39 Secondary malignant neoplasm of other respiratory organs; K74.69 Other cirrhosis of liver; B18.2 Chronic viral hepatitis C; K29.70 Gastritis, unspecified, without bleeding; I89.9 Noninfective disorder of lymphatic vessels and lymph nodes, unspecified; R59.1 Generalized enlarged lymph nodes; E27.1 Primary adrenocortical insufficiency ==

== ENCOUNTER 2023-06-03 12:11 | Inpatient (IN) | payer OTHER ==
[~2023-06-03] VITALS: Ht 172.7 cm; Wt 81.6 kg
[2023-06-03] MEDS ORDERED: APRESOLINE 10MG10 MG PO (12:34)
[2023-06-03] MEDS ORDERED: XARELTO10 MG (12:34)
[2023-06-03] MEDS ORDERED: CARVEDILOL ER40 MG (12:35)
[2023-06-03] MEDS ORDERED: PREDNISOLO15 MG/5 ML (12:35)
[2023-06-03] MEDS ORDERED: PERCOCET 10-321 EACH (12:36)
[2023-06-03] MEDS ORDERED: COZAAR25 MG PO (12:36)
[2023-06-03] MEDS ORDERED: [UNRECOGNIZED DRUG - OTHER] (12:36)
--- NOTE | 2023-06-03 12:46 | NUR ---
SE RECIBE PTE EN AMBULANCIA DEL [facility], ACOMPANADO POR PARAMEDICOS. PTE REFIERE DOLOR ABDOMINAL Y DOLOR DE PECHO HACEN 3 ARNDT. SE LUIS ARMANDO SV Y SE REALIZA EKG. EL MISMO SE PRESENTA A DR. FOLEY QUIEN REFIERE UBICAR A PTE EN AREA DE OBSERVACION.
--- NOTE | 2023-06-03 16:36 | NUR ---
SE EDUCA A PTE SOBRE [place] MEDICO, SE LUIS ARMANDO MUESTRAS DE LABORATORIO UTILIZANDO MEDIDAS ASEPTICAS. SE COLOCA H/L A PPTE Y SE ADMINISTRAN MEDICAMENTOS LOS CUALES TOLERA.
[2023-06-05] MEDS ORDERED: METHYLPREDNISOLO4 MG (15:48)
[2023-06-05] MEDS ORDERED: BANOPHEN50 MG (15:48)
[2023-06-05] MEDS ORDERED: FAMOTIDINE20 MG (15:48)
[2023-06-05] MEDS ORDERED: LOSARTAN-HCTZ1 EACH (15:48)
[2023-06-05] MEDS ORDERED: CARVEDILOL12.5 M1 (15:49)
== END 2023-06-07 18:00 | disposition home or self-care (01) | DRG 683 ==
LOC: ER 12:11 → ICU-2 06-04 00:27
PROVIDERS: ADMIT Specialist; ATTEND Specialist
PROC: BW21YZZ Computerized Tomography (CT Scan) of Abdomen and Pelvis using Other Contrast (ICD-10-PCS; principal; 2023-06-04)
PROC: 4A12X4Z Monitoring of Cardiac Electrical Activity, External Approach (ICD-10-PCS; 2023-06-04)
PROC: 3E0F7SF Introduction of Other Gas into Respiratory Tract, Via Natural or Artificial Opening (ICD-10-PCS; 2023-06-04)
PROC: 02HV33Z Insertion of Infusion Device into Superior Vena Cava, Percutaneous Approach (ICD-10-PCS; 2023-06-05)
DX: N17.8 Other acute kidney failure (principal); C22.0 Liver cell carcinoma; C79.9 Secondary malignant neoplasm of unspecified site; E87.1 Hypo-osmolality and hyponatremia; F11.93 Opioid use, unspecified with withdrawal; I87.1 Compression of vein; E86.0 Dehydration; R13.19 Other dysphagia; K59.09 Other constipation; E03.9 Hypothyroidism, unspecified; Z92.21 Personal history of antineoplastic chemotherapy

== ENCOUNTER 2023-07-01 07:18 | Outpatient (CLI) | payer OTHER ==
[~2023-07-01 07:18] MED LIST changes: +APRESOLINE 10MG10 MG PO; +BANOPHEN50 MG; +CARVEDILOL12.5 M1; +COZAAR25 MG PO; +PREDNISOLO15 MG/5 ML; +XARELTO10 MG; +[UNRECOGNIZED DRUG - OTHER]
== END 2023-07-01 07:19 | disposition home or self-care (01) ==
LOC: LAB 07:18
PROVIDERS: ATTEND Internal Medicine Hematology & Oncology
DX: C22.0 Liver cell carcinoma (principal); C78.6 Secondary malignant neoplasm of retroperitoneum and peritoneum; C78.39 Secondary malignant neoplasm of other respiratory organs; K74.69 Other cirrhosis of liver; B18.2 Chronic viral hepatitis C; K29.70 Gastritis, unspecified, without bleeding; I89.9 Noninfective disorder of lymphatic vessels and lymph nodes, unspecified; E27.1 Primary adrenocortical insufficiency

== ENCOUNTER → 2023-07-15 07:24 | Outpatient (CLI) | payer OTHER | END | disposition home or self-care (01) | LOC: LAB 07:24 | PROVIDERS: ATTEND Internal Medicine Hematology & Oncology | DX: D50.8 Other iron deficiency anemias (principal); R79.9 Abnormal finding of blood chemistry, unspecified; I10 Essential (primary) hypertension; R74.02 Elevation of levels of lactic acid dehydrogenase [LDH]; K76.89 Other specified diseases of liver; R97.0 Elevated carcinoembryonic antigen [CEA]; R97.8 Other abnormal tumor markers; R77.2 Abnormality of alphafetoprotein; C22.0 Liver cell carcinoma; C78.6 Secondary malignant neoplasm of retroperitoneum and peritoneum; I82.210 Acute embolism and thrombosis of superior vena cava; C78.39 Secondary malignant neoplasm of other respiratory organs; K74.69 Other cirrhosis of liver; B18.2 Chronic viral hepatitis C; K29.70 Gastritis, unspecified, without bleeding; I89.9 Noninfective disorder of lymphatic vessels and lymph nodes, unspecified; R59.1 Generalized enlarged lymph nodes; E27.1 Primary adrenocortical insufficiency ==

== ENCOUNTER 2023-08-11 08:41 | Outpatient (CLI) | payer OTHER | END 2023-08-11 08:43 | disposition home or self-care (01) | LOC: LAB 08:41 | PROVIDERS: ATTEND Internal Medicine Hematology & Oncology | DX: D50.8 Other iron deficiency anemias (principal); R79.9 Abnormal finding of blood chemistry, unspecified; I10 Essential (primary) hypertension; R74.02 Elevation of levels of lactic acid dehydrogenase [LDH]; K76.89 Other specified diseases of liver; D51.8 Other vitamin B12 deficiency anemias; R97.0 Elevated carcinoembryonic antigen [CEA]; R97.8 Other abnormal tumor markers; R77.2 Abnormality of alphafetoprotein; E03.8 Other specified hypothyroidism; C22.0 Liver cell carcinoma; C78.6 Secondary malignant neoplasm of retroperitoneum and peritoneum; I82.210 Acute embolism and thrombosis of superior vena cava; C78.39 Secondary malignant neoplasm of other respiratory organs; K74.69 Other cirrhosis of liver; B18.2 Chronic viral hepatitis C; K29.70 Gastritis, unspecified, without bleeding; I89.9 Noninfective disorder of lymphatic vessels and lymph nodes, unspecified; R59.1 Generalized enlarged lymph nodes; E27.1 Primary adrenocortical insufficiency ==

== ENCOUNTER 2023-09-17 07:42 | Outpatient (CLI) | payer OTHER | END 2023-09-17 07:43 | disposition home or self-care (01) | LOC: NUCLEAR 07:42 | PROVIDERS: ATTEND Internal Medicine | DX: I42.0 Dilated cardiomyopathy (principal); C22.0 Liver cell carcinoma; I50.9 Heart failure, unspecified ==

== ENCOUNTER → 2023-09-23 06:34 | Outpatient (CLI) | payer OTHER ==
[2023-09-23 08:03] LABS: HEMATOCRIT 38.7 % (39.0-48.0); HEMOGLOBIN 12.9 g/dL (13-16.00); MEAN CELL VOLUME 94.1 fL (80.0-100.00); MEAN CORPUSCULAR HEMOGLOBIN 31.4 pg (27.00-32.0); MEAN CORPUSCULAR HGB CONC 33.4 g/dl (32.0-36.0); PLATELET COUNT 137 K/uL (150-450); RED BLOOD COUNT 4.11 M/uL (4.00-6.00); RED CELL DISTRIBUTION WIDTH 13.7 % (11.5-14.5)
[2023-09-23 08:55] LABS: ALBUMIN 3.6 gm/dL (3.4-5.0); BILIRUBIN TOTAL 0.57 mg/dL (0.3-1.2); CALCIUM 8.7 mg/dL (8.5-10.1); CREATININE SERUM 1.16 mg/dL (0.70-1.30); GFR 63.38; GLOBULINA 3.4 G/DL (2.4-3.5); POTASSIUM 4.27 mEq/L (3.5-5.1)
[2023-09-23 09:01] LABS: T4 FREE 1.56 NG/ML (0.76-1.46); TSH 0.009 uIU/mL (0.358-3.74)
[2023-09-23 12:27] LABS: MANUAL PLATELET COUNT 220
[2023-09-23 12:29] LABS: PLATELET ESTIMATE NORMAL (NORMAL)
== END | disposition home or self-care (01) ==
LOC: LAB 06:34
PROVIDERS: ATTEND Internal Medicine Hematology & Oncology
DX: D50.8 Other iron deficiency anemias (principal); R79.9 Abnormal finding of blood chemistry, unspecified; I10 Essential (primary) hypertension; R74.02 Elevation of levels of lactic acid dehydrogenase [LDH]; K76.89 Other specified diseases of liver; E03.8 Other specified hypothyroidism; R97.0 Elevated carcinoembryonic antigen [CEA]; R97.8 Other abnormal tumor markers; R77.2 Abnormality of alphafetoprotein; C22.0 Liver cell carcinoma; C78.6 Secondary malignant neoplasm of retroperitoneum and peritoneum; I82.210 Acute embolism and thrombosis of superior vena cava; C78.39 Secondary malignant neoplasm of other respiratory organs; K74.69 Other cirrhosis of liver; B18.2 Chronic viral hepatitis C; K29.70 Gastritis, unspecified, without bleeding; I89.9 Noninfective disorder of lymphatic vessels and lymph nodes, unspecified; E27.1 Primary adrenocortical insufficiency

== ENCOUNTER → 2023-10-13 06:30 | Outpatient (CLI) | payer OTHER ==
[2023-10-13 07:25] LABS: HEMATOCRIT 40.2 % (39.0-48.0); HEMOGLOBIN 13.7 g/dL (13-16.00); MEAN CELL VOLUME 93.3 fL (80.0-100.00); MEAN CORPUSCULAR HEMOGLOBIN 31.7 pg (27.00-32.0); PLATELET COUNT 141 K/uL (150-450); RED BLOOD COUNT 4.31 M/uL (4.00-6.00); RED CELL DISTRIBUTION WIDTH 13.1 % (11.5-14.5)
[2023-10-13 08:04] LABS: ALBUMIN 3.8 gm/dL (3.4-5.0); BILIRUBIN TOTAL 0.74 mg/dL (0.3-1.2); CALCIUM 9.2 mg/dL (8.5-10.1); CREATININE SERUM 1.13 mg/dL (0.70-1.30); GFR 65.33; GLOBULINA 3.7 G/DL (2.4-3.5); POTASSIUM 4.08 mEq/L (3.5-5.1); TOTAL PROTEIN 7.5 gm/dL (6.4-8.2)
== END | disposition home or self-care (01) ==
LOC: LAB 06:30
PROVIDERS: ATTEND Internal Medicine Hematology & Oncology
DX: D50.8 Other iron deficiency anemias (principal); R79.9 Abnormal finding of blood chemistry, unspecified; I10 Essential (primary) hypertension; R74.02 Elevation of levels of lactic acid dehydrogenase [LDH]; K76.89 Other specified diseases of liver; R97.0 Elevated carcinoembryonic antigen [CEA]; R97.8 Other abnormal tumor markers; R77.2 Abnormality of alphafetoprotein; C22.0 Liver cell carcinoma; C78.6 Secondary malignant neoplasm of retroperitoneum and peritoneum; I82.210 Acute embolism and thrombosis of superior vena cava; C78.39 Secondary malignant neoplasm of other respiratory organs; K74.69 Other cirrhosis of liver; B18.2 Chronic viral hepatitis C; K29.70 Gastritis, unspecified, without bleeding; I89.9 Noninfective disorder of lymphatic vessels and lymph nodes, unspecified; E27.1 Primary adrenocortical insufficiency

== ENCOUNTER → 2023-11-03 06:55 | Outpatient (CLI) | payer OTHER ==
[2023-11-03 08:12] LABS: HEMATOCRIT 39.8 % (39.0-48.0); HEMOGLOBIN 13.4 g/dL (13-16.00); MEAN CELL VOLUME 91.9 fL (80.0-100.00); MEAN CORPUSCULAR HGB CONC 33.8 g/dl (32.0-36.0); PLATELET COUNT 133 K/uL (150-450); RED BLOOD COUNT 4.33 M/uL (4.00-6.00); RED CELL DISTRIBUTION WIDTH 13.6 % (11.5-14.5)
[2023-11-03 08:44] LABS: ALBUMIN 3.8 gm/dL (3.4-5.0); BILIRUBIN TOTAL 0.65 mg/dL (0.3-1.2); CREATININE SERUM 1.11 mg/dL (0.70-1.30); GFR 66.69; GLOBULINA 3.6 G/DL (2.4-3.5); POTASSIUM 4.47 mEq/L (3.5-5.1); TOTAL PROTEIN 7.4 gm/dL (6.4-8.2)
[2023-11-04 14:50] LABS: MANUAL PLATELET COUNT 348
[2023-11-04 14:51] LABS: PLATELET ESTIMATE NORMAL (NORMAL)
== END | disposition home or self-care (01) ==
LOC: LAB 06:55
PROVIDERS: ATTEND Internal Medicine Hematology & Oncology
DX: D50.8 Other iron deficiency anemias (principal); R79.9 Abnormal finding of blood chemistry, unspecified; I10 Essential (primary) hypertension; R74.02 Elevation of levels of lactic acid dehydrogenase [LDH]; K76.89 Other specified diseases of liver; R97.0 Elevated carcinoembryonic antigen [CEA]; R97.8 Other abnormal tumor markers; R77.2 Abnormality of alphafetoprotein; C22.0 Liver cell carcinoma; C78.6 Secondary malignant neoplasm of retroperitoneum and peritoneum; I82.210 Acute embolism and thrombosis of superior vena cava; C78.39 Secondary malignant neoplasm of other respiratory organs; K74.69 Other cirrhosis of liver; B18.2 Chronic viral hepatitis C; K29.70 Gastritis, unspecified, without bleeding; I89.9 Noninfective disorder of lymphatic vessels and lymph nodes, unspecified; E27.1 Primary adrenocortical insufficiency

== ENCOUNTER → 2023-12-01 06:37 | Outpatient (CLI) | payer OTHER ==
[2023-12-01 07:52] LABS: URINE APPEARANCE Clear; URINE BILIRRUBIN Small (NEGATIVE); URINE BLOOD Trace; URINE COLOR Dark Yellow; URINE GLUCOSE Negative (NEGATIVE); URINE LEUKOCYTE Trace; URINE NITRATE Negative
[2023-12-01 07:56] LABS: URINE BACTERIA 13.8 uL (0.0-1933); URINE EPITHELIAL CELLS 2.3 uL (0.0-38.8); URINE RBC 41.8 uL (0.0-20.8); URINE WBC 9.8 uL (0.0-23.2)
[2023-12-01 07:58] LABS: HEMATOCRIT 41.7 % (39.0-48.0); HEMOGLOBIN 13.8 g/dL (13-16.00); MEAN CELL VOLUME 90.9 fL (80.0-100.00); MEAN CORPUSCULAR HEMOGLOBIN 30.2 pg (27.00-32.0); MEAN CORPUSCULAR HGB CONC 33.2 g/dl (32.0-36.0); PLATELET COUNT 143 K/uL (150-450); RED BLOOD COUNT 4.59 M/uL (4.00-6.00); RED CELL DISTRIBUTION WIDTH 14.6 % (11.5-14.5)
[2023-12-01 08:01] LABS: URINE PROTEIN 100 (NEGATIVE)
[2023-12-01 08:49] LABS: ALBUMIN 4.1 gm/dL (3.4-5.0); BILIRUBIN TOTAL 0.45 mg/dL (0.3-1.2); CREATININE SERUM 1.02 mg/dL (0.70-1.30); GFR 73.53; GLOBULINA 3.4 G/DL (2.4-3.5); POTASSIUM 4.77 mEq/L (3.5-5.1); PROSTATIC SPECIFIC ANTIGEN 2.36 NG/ML (0.010-4.00); TOTAL PROTEIN 7.5 gm/dL (6.4-8.2)
[2023-12-01 08:52] LABS: TSH 0.099 uIU/mL (0.358-3.74)
[2023-12-01 13:31] LABS: MANUAL PLATELET COUNT 280
[2023-12-01 13:33] LABS: PLATELET ESTIMATE NORMAL (NORMAL)
== END | disposition home or self-care (01) ==
LOC: LAB 06:37
PROVIDERS: ATTEND Internal Medicine Hematology & Oncology
DX: L40.0 Psoriasis vulgaris (principal); B17.0 Acute delta-(super) infection of hepatitis B carrier

== ENCOUNTER 2023-12-14 07:42 | Outpatient (CLI) | payer OTHER | END 2023-12-14 07:45 | disposition home or self-care (01) | LOC: NUCLEAR 07:42 | PROVIDERS: ATTEND Internal Medicine | DX: I42.0 Dilated cardiomyopathy (principal); I50.9 Heart failure, unspecified ==

== ENCOUNTER 2024-01-01 07:25 | Outpatient (CLI) | payer OTHER ==
[2024-01-01 08:15] LABS: HEMATOCRIT 41.2 % (39.0-48.0); HEMOGLOBIN 13.7 g/dL (13-16.00); MEAN CELL VOLUME 91.9 fL (80.0-100.00); MEAN CORPUSCULAR HEMOGLOBIN 30.6 pg (27.00-32.0); MEAN CORPUSCULAR HGB CONC 33.3 g/dl (32.0-36.0); PLATELET COUNT 136 K/uL (150-450); RED BLOOD COUNT 4.48 M/uL (4.00-6.00); RED CELL DISTRIBUTION WIDTH 15.3 % (11.5-14.5)
[2024-01-01 08:34] LABS: BILIRUBIN TOTAL 0.48 mg/dL (0.3-1.2); CALCIUM 9.1 mg/dL (8.5-10.1); CREATININE SERUM 1.12 mg/dL (0.70-1.30); GLOBULINA 3.5 G/DL (2.4-3.5); POTASSIUM 4.67 mEq/L (3.5-5.1); TOTAL PROTEIN 7.5 gm/dL (6.4-8.2)
[2024-01-01 11:11] LABS: MANUAL PLATELET COUNT 180
[2024-01-01 11:13] LABS: PLATELET ESTIMATE NORMAL (NORMAL)
== END 2024-01-01 12:32 | disposition home or self-care (01) ==
LOC: LAB 07:25
PROVIDERS: ATTEND Internal Medicine Hematology & Oncology
DX: D50.8 Other iron deficiency anemias (principal); R79.9 Abnormal finding of blood chemistry, unspecified; I10 Essential (primary) hypertension; R74.02 Elevation of levels of lactic acid dehydrogenase [LDH]; K76.89 Other specified diseases of liver; R97.0 Elevated carcinoembryonic antigen [CEA]; R97.8 Other abnormal tumor markers; R77.2 Abnormality of alphafetoprotein; C22.0 Liver cell carcinoma; C78.6 Secondary malignant neoplasm of retroperitoneum and peritoneum; I82.210 Acute embolism and thrombosis of superior vena cava; C78.39 Secondary malignant neoplasm of other respiratory organs; K74.69 Other cirrhosis of liver; B18.2 Chronic viral hepatitis C; K29.70 Gastritis, unspecified, without bleeding; I89.9 Noninfective disorder of lymphatic vessels and lymph nodes, unspecified; R59.1 Generalized enlarged lymph nodes; E27.1 Primary adrenocortical insufficiency

== ENCOUNTER 2024-01-27 15:56 | Emergency (ER) | payer OTHER ==
[~2024-01-27] VITALS: Ht 175.3 cm; Wt 62.6 kg
[2024-01-27] MEDS ORDERED: FAMOTIDINE/PF 20 MG in 0.9 % SODIUM CHLORIDE 8 ML IV PUSH STA (17:06)
[2024-01-27] MEDS ORDERED: 0.9 % SODIUM CHLORIDE 1,000 ML IV SCH (17:15)
[2024-01-27] MEDS ORDERED: HYOSCYAMINE SULFATE 0.125 MG TAB.SUBL SL ONE (17:15)
[2024-01-27 17:40] LABS: HEMATOCRIT 47.4 % (39.0-48.0); HEMOGLOBIN 16.3 g/dL (13-16.00); MEAN CELL VOLUME 89.1 fL (80.0-100.00); MEAN CORPUSCULAR HEMOGLOBIN 30.7 pg (27.00-32.0); MEAN CORPUSCULAR HGB CONC 34.5 g/dl (32.0-36.0); PLATELET COUNT 157 K/uL (150-450); RED BLOOD COUNT 5.32 M/uL (4.00-6.00); RED CELL DISTRIBUTION WIDTH 15.1 % (11.5-14.5)
[2024-01-27 18:03] LABS: INR 1.45; PARTIAL THROMBOPLASTIN TIME 30.1 SECONDS (22.0-34.0); PROTHROMBIN TIME 14.8 SECONDS (9.0-11.5)
[2024-01-27 18:06] LABS: ALBUMIN 3.8 gm/dL (3.4-5.0); BILIRUBIN TOTAL 1.31 mg/dL (0.3-1.2); CALCIUM 9.7 mg/dL (8.5-10.1); CREATININE SERUM 1.2 mg/dL (0.70-1.30); GFR 60.95; GLOBULINA 4.6 G/DL (2.4-3.5); TOTAL PROTEIN 8.4 gm/dL (6.4-8.2)
[2024-01-27 18:09] LABS: BILIRUBIN,CONJUGATED 0.35 mg/dL (0.0-0.2); BILIRUBIN,UNCONJUGATED 0.96 mg/dL (0.0-0.6)
[2024-01-27 18:10] LABS: POTASSIUM 4.45 mEq/L (3.5-5.1)
[2024-01-27 18:30] LABS: PH,URINE 5.5 (5.0-8.0); URINE APPEARANCE Clear; URINE BILIRRUBIN Negative (NEGATIVE); URINE BLOOD Negative; URINE COLOR Dark Yellow; URINE GLUCOSE Negative (NEGATIVE); URINE LEUKOCYTE Negative; URINE NITRATE Negative; URINE PROTEIN 30 (NEGATIVE)
[2024-01-27 18:33] LABS: URINE BACTERIA 20.1 uL (0.0-1933); URINE EPITHELIAL CELLS 3.2 uL (0.0-38.8); URINE RBC 9.9 uL (0.0-20.8); URINE WBC 2.1 uL (0.0-23.2)
== END 2024-01-27 20:36 | disposition home or self-care (01) ==
LOC: ER 15:56
PROVIDERS: General Practice
DX: R10.13 Epigastric pain (principal); I10 Essential (primary) hypertension; Z85.05 Personal history of malignant neoplasm of liver; Z20.822 Contact with and (suspected) exposure to COVID-19

== ENCOUNTER 2024-02-03 10:02 | Inpatient (IN) | payer OTHER ==
[~2024-02-03] VITALS: Ht 177.8 cm; Wt 59.9 kg
[2024-02-03] MEDS ORDERED: ONDANSETRON HCL8 MG PO (10:30)
[2024-02-03] MEDS ORDERED: 0.9 % SODIUM CHLORIDE 1,000 ML IV STA (11:03)
[2024-02-03 11:50] LABS: ALBUMIN 3.8 gm/dL (3.4-5.0); BILIRUBIN TOTAL 0.85 mg/dL (0.3-1.2); BILIRUBIN,CONJUGATED 0.46 mg/dL (0.0-0.2); BILIRUBIN,UNCONJUGATED 0.39 mg/dL (0.0-0.6); CALCIUM 9.4 mg/dL (8.5-10.1); CREATININE SERUM 2.44 mg/dL (0.70-1.30); GFR 26.87; POTASSIUM 5.39 mEq/L (3.5-5.1); TOTAL PROTEIN 8.1 gm/dL (6.4-8.2)
[2024-02-03 12:07] LABS: HEMATOCRIT 46.8 % (39.0-48.0); HEMOGLOBIN 16.4 g/dL (13-16.00); MEAN CELL VOLUME 88.2 fL (80.0-100.00); MEAN CORPUSCULAR HEMOGLOBIN 30.9 pg (27.00-32.0); PLATELET COUNT 299 K/uL (150-450); RED BLOOD COUNT 5.31 M/uL (4.00-6.00); RED CELL DISTRIBUTION WIDTH 15.2 % (11.5-14.5)
[2024-02-03 12:21] LABS: PROTHROMBIN TIME 12.5 SECONDS (9.0-11.5)
[2024-02-03 12:22] LABS: INR 1.21; PARTIAL THROMBOPLASTIN TIME 37.9 SECONDS (22.0-34.0)
[2024-02-03 12:27] LABS: URINE APPEARANCE Clear; URINE BILIRRUBIN Large (NEGATIVE); URINE BLOOD Negative; URINE COLOR Dark Yellow; URINE GLUCOSE Negative (NEGATIVE); URINE LEUKOCYTE Negative; URINE NITRATE Negative; URINE PROTEIN 30 (NEGATIVE)
[2024-02-03 12:28] LABS: URINE BACTERIA 12.5 uL (0.0-1933); URINE EPITHELIAL CELLS 3.5 uL (0.0-38.8); URINE RBC 5.1 uL (0.0-20.8); URINE WBC 2.4 uL (0.0-23.2)
[2024-02-03] MEDS ORDERED: 0.9 % SODIUM CHLORIDE 1,000 ML IV SCH (22:45)
[2024-02-03] MEDS ORDERED: OxyCODONE HCL/APAP UD (PERCOCET) PO PRN (23:00)
[2024-02-03 23:56] LABS: MAGNESIUM 2.3 mg/dL (1.8-2.4); PHOSPHOROUS 2.6 mg/dL (2.5-4.9)
[2024-02-04] MEDS ORDERED: LEVOTHYROXINE SODIUM 125 MCG TABLET PO SCH (06:00)
[2024-02-04] MEDS ORDERED: CARVEDILOL 12.5 MG TABLET PO SCH (09:00)
[2024-02-04] MEDS ORDERED: LOSARTAN POTASSIUM 50 MG TABLET PO SCH (09:00)
[2024-02-04] MEDS ORDERED: RIVAROXABAN 10 MG TAB PO SCH (09:00)
[2024-02-05 06:01] LABS: ALBUMIN 2.9 gm/dL (3.4-5.0); BILIRUBIN TOTAL 0.77 mg/dL (0.3-1.2); CALCIUM 8.1 mg/dL (8.5-10.1); CREATININE SERUM 0.74 mg/dL (0.70-1.30); GFR 106.48; GLOBULINA 3.2 G/DL (2.4-3.5); POTASSIUM 4.28 mEq/L (3.5-5.1); TOTAL PROTEIN 6.1 gm/dL (6.4-8.2)
[2024-02-05 08:03] LABS: HEMATOCRIT 39.1 % (39.0-48.0); HEMOGLOBIN 13.5 g/dL (13-16.00); MEAN CELL VOLUME 87.9 fL (80.0-100.00); MEAN CORPUSCULAR HEMOGLOBIN 30.5 pg (27.00-32.0); MEAN CORPUSCULAR HGB CONC 34.7 g/dl (32.0-36.0); PLATELET COUNT 159 K/uL (150-450); RED BLOOD COUNT 4.44 M/uL (4.00-6.00); RED CELL DISTRIBUTION WIDTH 15.2 % (11.5-14.5)
== END 2024-02-05 10:50 | disposition home or self-care (01) | DRG 641 ==
LOC: ER 10:02 → SURH 22:47 → MEDJ 22:47 → SURH 23:32
PROVIDERS: General Practice; ADMIT Internal Medicine; ATTEND Internal Medicine
PROC: BT4JZZZ Ultrasonography of Kidneys and Bladder (ICD-10-PCS; principal; 2024-02-04)
DX: E86.0 Dehydration (principal); N17.9 Acute kidney failure, unspecified; C78.7 Secondary malignant neoplasm of liver and intrahepatic bile duct; E87.1 Hypo-osmolality and hyponatremia; E87.5 Hyperkalemia; I12.9 Hypertensive chronic kidney disease with stage 1 through stage 4 chronic kidney disease, or unspecified chronic kidney disease; N18.9 Chronic kidney disease, unspecified; E03.9 Hypothyroidism, unspecified

== ENCOUNTER → 2024-02-15 07:29 | Outpatient (CLI) | payer OTHER ==
[~2024-02-15 07:29] MED LIST changes: +ONDANSETRON HCL8 MG PO
[2024-02-15 08:44] LABS: HEMATOCRIT 38.1 % (39.0-48.0); HEMOGLOBIN 12.5 g/dL (13-16.00); MEAN CELL VOLUME 90.5 fL (80.0-100.00); MEAN CORPUSCULAR HEMOGLOBIN 29.7 pg (27.00-32.0); MEAN CORPUSCULAR HGB CONC 32.9 g/dl (32.0-36.0); PLATELET COUNT 153 K/uL (150-450); RED BLOOD COUNT 4.21 M/uL (4.00-6.00); RED CELL DISTRIBUTION WIDTH 15.8 % (11.5-14.5)
[2024-02-15 09:28] LABS: ALBUMIN 3.4 gm/dL (3.4-5.0); BILIRUBIN TOTAL 0.42 mg/dL (0.3-1.2); CALCIUM 8.7 mg/dL (8.5-10.1); CHOL HDL RATIO 3.1 (0-5.0); CREATININE SERUM 0.9 mg/dL (0.70-1.30); GFR 84.95; GLOBULINA 3.4 G/DL (2.4-3.5); POTASSIUM 3.96 mEq/L (3.5-5.1); PROSTATIC SPECIFIC ANTIGEN 1.62 NG/ML (0.010-4.00); T4 FREE 1.01 NG/ML (0.76-1.46); T4 TOTAL 8.24 UG/DL (4.5-12.1); TOTAL PROTEIN 6.8 gm/dL (6.4-8.2); TSH 3.42 uIU/mL (0.358-3.74)
== END | disposition home or self-care (01) ==
LOC: LAB 07:29
PROVIDERS: ATTEND Internal Medicine Hematology & Oncology
DX: C22.0 Liver cell carcinoma (principal); C78.6 Secondary malignant neoplasm of retroperitoneum and peritoneum; I82.210 Acute embolism and thrombosis of superior vena cava; C78.39 Secondary malignant neoplasm of other respiratory organs; K74.69 Other cirrhosis of liver; B18.2 Chronic viral hepatitis C; K29.70 Gastritis, unspecified, without bleeding; R59.1 Generalized enlarged lymph nodes; E27.1 Primary adrenocortical insufficiency

== ENCOUNTER 2024-03-11 06:27 | Outpatient (CLI) | payer OTHER ==
[2024-03-11 07:20] LABS: HEMATOCRIT 38.3 % (39.0-48.0); HEMOGLOBIN 12.9 g/dL (13-16.00); MEAN CELL VOLUME 92.2 fL (80.0-100.00); MEAN CORPUSCULAR HEMOGLOBIN 31.1 pg (27.00-32.0); MEAN CORPUSCULAR HGB CONC 33.8 g/dl (32.0-36.0); RED BLOOD COUNT 4.16 M/uL (4.00-6.00); RED CELL DISTRIBUTION WIDTH 16.1 % (11.5-14.5)
[2024-03-11 07:31] LABS: PLATELET COUNT 128 K/uL (150-450)
[2024-03-11 08:09] LABS: ALBUMIN 3.7 gm/dL (3.4-5.0); BILIRUBIN TOTAL 0.59 mg/dL (0.3-1.2); CALCIUM 9.2 mg/dL (8.5-10.1); CREATININE SERUM 1.03 mg/dL (0.70-1.30); GFR 72.7; GLOBULINA 3.3 G/DL (2.4-3.5); POTASSIUM 4.43 mEq/L (3.5-5.1); PROSTATIC SPECIFIC ANTIGEN 1.42 NG/ML (0.010-4.00)
[2024-03-11 08:39] LABS: MANUAL PLATELET COUNT 304
[2024-03-11 08:42] LABS: PLATELET ESTIMATE NORMAL (NORMAL)
== END 2024-03-11 06:28 | disposition home or self-care (01) ==
LOC: LAB 06:27
PROVIDERS: ATTEND Internal Medicine Hematology & Oncology
DX: D50.8 Other iron deficiency anemias (principal); R79.9 Abnormal finding of blood chemistry, unspecified; I10 Essential (primary) hypertension; R74.02 Elevation of levels of lactic acid dehydrogenase [LDH]; K76.89 Other specified diseases of liver; R97.0 Elevated carcinoembryonic antigen [CEA]; R97.8 Other abnormal tumor markers; R97.20 Elevated prostate specific antigen [PSA]; C22.0 Liver cell carcinoma; C78.6 Secondary malignant neoplasm of retroperitoneum and peritoneum; I82.210 Acute embolism and thrombosis of superior vena cava; C78.39 Secondary malignant neoplasm of other respiratory organs; K74.69 Other cirrhosis of liver; B18.2 Chronic viral hepatitis C; K29.70 Gastritis, unspecified, without bleeding; I89.9 Noninfective disorder of lymphatic vessels and lymph nodes, unspecified; E27.1 Primary adrenocortical insufficiency

== ENCOUNTER 2024-06-08 07:36 | Outpatient (CLI) | payer OTHER ==
[~2024-06-08 07:36] MED LIST changes: +KEYTRUDA100 MG/4 M
[2024-06-08 08:45] LABS: HEMATOCRIT 38.5 % (39.0-48.0); MEAN CELL VOLUME 92.7 fL (80.0-100.00); MEAN CORPUSCULAR HEMOGLOBIN 31.3 pg (27.00-32.0); MEAN CORPUSCULAR HGB CONC 33.7 g/dl (32.0-36.0); PLATELET COUNT 210 K/uL (150-450); RED BLOOD COUNT 4.15 M/uL (4.00-6.00); RED CELL DISTRIBUTION WIDTH 16.1 % (11.5-14.5)
[2024-06-08 09:29] LABS: ALBUMIN 3.7 gm/dL (3.4-5.0); BILIRUBIN TOTAL 0.54 mg/dL (0.3-1.2); CALCIUM 8.9 mg/dL (8.5-10.1); GFR 74.99; GLOBULINA 3.7 G/DL (2.4-3.5); POTASSIUM 4.15 mEq/L (3.5-5.1); TOTAL PROTEIN 7.4 gm/dL (6.4-8.2)
== END 2024-06-08 07:47 | disposition home or self-care (01) ==
LOC: LAB 07:36
PROVIDERS: ATTEND Internal Medicine Hematology & Oncology
DX: C78.6 Secondary malignant neoplasm of retroperitoneum and peritoneum (principal); I82.210 Acute embolism and thrombosis of superior vena cava; C78.39 Secondary malignant neoplasm of other respiratory organs; K74.69 Other cirrhosis of liver; B18.2 Chronic viral hepatitis C; K29.70 Gastritis, unspecified, without bleeding; I89.9 Noninfective disorder of lymphatic vessels and lymph nodes, unspecified; R59.1 Generalized enlarged lymph nodes; E27.1 Primary adrenocortical insufficiency; R11.2 Nausea with vomiting, unspecified; R10.10 Upper abdominal pain, unspecified; E27.2 Addisonian crisis; D50.8 Other iron deficiency anemias; I10 Essential (primary) hypertension; R74.02 Elevation of levels of lactic acid dehydrogenase [LDH]; K76.89 Other specified diseases of liver; R97.0 Elevated carcinoembryonic antigen [CEA]

== ENCOUNTER 2024-07-09 07:12 | Outpatient (CLI) | payer OTHER ==
[2024-07-09 09:11] LABS: HEMOGLOBIN 12.1 g/dL (13-16.00); MEAN CELL VOLUME 93.4 fL (80.0-100.00); MEAN CORPUSCULAR HEMOGLOBIN 31.5 pg (27.00-32.0); MEAN CORPUSCULAR HGB CONC 33.7 g/dl (32.0-36.0); PLATELET COUNT 190 K/uL (150-450); RED BLOOD COUNT 3.85 M/uL (4.00-6.00); RED CELL DISTRIBUTION WIDTH 15.6 % (11.5-14.5)
[2024-07-09 09:43] LABS: ALBUMIN 3.7 gm/dL (3.4-5.0); BILIRUBIN TOTAL 0.67 mg/dL (0.3-1.2); CREATININE SERUM 1.22 mg/dL (0.70-1.30); GFR 59.61; GLOBULINA 3.5 G/DL (2.4-3.5); POTASSIUM 4.22 mEq/L (3.5-5.1); TOTAL PROTEIN 7.2 gm/dL (6.4-8.2)
== END 2024-07-09 07:24 | disposition home or self-care (01) ==
LOC: LAB 07:12
PROVIDERS: ATTEND Internal Medicine Hematology & Oncology
DX: C22.0 Liver cell carcinoma (principal); C78.6 Secondary malignant neoplasm of retroperitoneum and peritoneum; I82.210 Acute embolism and thrombosis of superior vena cava; C78.39 Secondary malignant neoplasm of other respiratory organs; K74.69 Other cirrhosis of liver; B18.2 Chronic viral hepatitis C; K29.70 Gastritis, unspecified, without bleeding; I89.9 Noninfective disorder of lymphatic vessels and lymph nodes, unspecified; R59.1 Generalized enlarged lymph nodes; E27.1 Primary adrenocortical insufficiency; R11.2 Nausea with vomiting, unspecified; R10.10 Upper abdominal pain, unspecified; E27.2 Addisonian crisis

== ENCOUNTER 2024-07-14 15:01 | Emergency (ER) | payer OTHER ==
[~2024-07-14] VITALS: Ht 172.7 cm; Wt 48.5 kg
[2024-07-14] MEDS ORDERED: FAMOTIDINE/PF 20 MG in 0.9 % SODIUM CHLORIDE 8 ML IV PUSH STA (16:29)
[2024-07-14] MEDS ORDERED: 0.9 % SODIUM CHLORIDE 1,000 ML IV SCH (16:30)
[2024-07-14] MEDS ORDERED: MORPHINE SULFATE 4 MG/ML VIAL IV ONE (16:30)
[2024-07-14] MEDS ORDERED: ONDANSETRON HCL 2 MG/ML VIAL IV ONE (16:30)
[2024-07-14] MEDS ORDERED: ONDANSETRON HCL 2 MG/ML VIAL ONE (16:35)
[2024-07-14] MEDS ORDERED: FAMOTIDINE/PF 20 MG/2 ML VIAL ONE (16:36)
[2024-07-14 17:15] LABS: HEMATOCRIT 44.6 % (39.0-48.0); HEMOGLOBIN 15.5 g/dL (13-16.00); MEAN CELL VOLUME 91.8 fL (80.0-100.00); MEAN CORPUSCULAR HEMOGLOBIN 31.9 pg (27.00-32.0); MEAN CORPUSCULAR HGB CONC 34.7 g/dl (32.0-36.0); PLATELET COUNT 261 K/uL (150-450); RED BLOOD COUNT 4.85 M/uL (4.00-6.00)
[2024-07-14 17:44] LABS: ALBUMIN 3.8 gm/dL (3.4-5.0); BILIRUBIN TOTAL 1.12 mg/dL (0.3-1.2); BILIRUBIN,CONJUGATED 0.6 mg/dL (0.0-0.2); BILIRUBIN,UNCONJUGATED 0.52 mg/dL (0.0-0.6); CALCIUM 9.5 mg/dL (8.5-10.1); CREATININE SERUM 1.23 mg/dL (0.70-1.30); GFR 59.06; GLOBULINA 4.2 G/DL (2.4-3.5); POTASSIUM 4.83 mEq/L (3.5-5.1)
[2024-07-14] MEDS ORDERED: DEXTROSE 50 % IN WATER 0.5 G/ML VIAL IV ONE ×2 (17:51→18:00)
[2024-07-14] MEDS ORDERED: ONDANSETRON HCL 2 MG/ML VIAL IV SCH (19:10)
[2024-07-14] MEDS ORDERED: MORPHINE SULFATE 4 MG/ML VIAL IV PRN (19:15)
[2024-07-14] MEDS ORDERED: DEXTROSE 5 % AND 0.9 % NACL 1,000 ML IV SCH (19:15)
[2024-07-15] MEDS ORDERED: ONDANSETRON HCL 2 MG/ML VIAL ONE (02:51)
== END 2024-07-15 07:27 | disposition home or self-care (01) ==
LOC: ER 15:01
PROVIDERS: General Practice
DX: R11.2 Nausea with vomiting, unspecified (principal); G89.3 Neoplasm related pain (acute) (chronic); R53.1 Weakness; E86.0 Dehydration; C34.90 Malignant neoplasm of unspecified part of unspecified bronchus or lung; C78.7 Secondary malignant neoplasm of liver and intrahepatic bile duct

== ENCOUNTER 2024-08-03 12:32 | Inpatient (IN) | payer OTHER ==
[~2024-08-03] VITALS: Ht 165.1 cm; Wt 61.2 kg
[2024-08-03] MEDS ORDERED: DEXTROSE 50 % IN WATER 0.5 G/ML DISP.SYRIN IV ONE (12:54)
[2024-08-03 13:15] LABS: ABG PH 7.398 (7.35-7.45); ABG PO2 95.7 mmHg (80-100); ABG pCO2 31.2 mmHg (35-45); BASE EXCESS -4.8 mmol/l; BICARBONATE 18.8 mmol/l (23-25); SaO2 97.3 %; Tco2 19.7 mmol/l
[2024-08-03] MEDS ORDERED: RINGERS SOLUTION,LACTATED 2,000 ML IV SCH (13:30)
[2024-08-03] MEDS ORDERED: METHYLPREDNISOLONE SOD SUCC 40 MG VIAL IV ONE (13:30)
[2024-08-03] MEDS ORDERED: METHYLPREDNISOLONE SOD SUCC 40 MG VIAL ONE (13:33)
[2024-08-03 13:43] LABS: HEMATOCRIT 36.6 % (39.0-48.0); HEMOGLOBIN 12.8 g/dL (13-16.00); MEAN CELL VOLUME 89.3 fL (80.0-100.00); MEAN CORPUSCULAR HEMOGLOBIN 31.1 pg (27.00-32.0); MEAN CORPUSCULAR HGB CONC 34.8 g/dl (32.0-36.0); PLATELET COUNT 183 K/uL (150-450); RED CELL DISTRIBUTION WIDTH 14.9 % (11.5-14.5)
[2024-08-03 13:45] LABS: allen test SATISFACTORY; o2 21 %; puncture site RADIAL LEFT
[2024-08-03 14:07] LABS: INR 1.45
[2024-08-03 14:16] LABS: PARTIAL THROMBOPLASTIN TIME 41.5 SECONDS (22.0-34.0)
[2024-08-03 14:17] LABS: PROTHROMBIN TIME 15.4 SECONDS (9.0-11.5)
[2024-08-03 14:29] LABS: ALBUMIN 2.5 gm/dL (3.4-5.0); BILIRUBIN TOTAL 2.39 mg/dL (0.3-1.2); CALCIUM 8.1 mg/dL (8.5-10.1); CREATININE SERUM 1.86 mg/dL (0.70-1.30); GFR 36.64; GLOBULINA 3.5 G/DL (2.4-3.5); POTASSIUM 3.03 mEq/L (3.5-5.1)
[2024-08-03] MEDS ORDERED: ONDANSETRON HCL 2 MG/ML VIAL ONE (14:32)
[2024-08-03 15:00] LABS: URINE APPEARANCE Clear; URINE BILIRRUBIN Moderate (NEGATIVE); URINE BLOOD Negative; URINE COLOR Dark Yellow; URINE GLUCOSE Negative (NEGATIVE); URINE KETONE 15 (NEGATIVE); URINE LEUKOCYTE Trace; URINE NITRATE Negative; URINE PROTEIN 30 (NEGATIVE)
[2024-08-03] MEDS ORDERED: ONDANSETRON HCL 2 MG/ML VIAL IV ONE (15:00)
[2024-08-03 15:02] LABS: URINE BACTERIA 12.5 uL (0.0-1933); URINE CAST 1.67 uL (0.0-1.40); URINE EPITHELIAL CELLS 8.1 uL (0.0-38.8)
[2024-08-03] MEDS ORDERED: SODIUM CHLORIDE 0.9% IV SCH (17:15)
[2024-08-03] MEDS ORDERED: MORPHINE SULFATE IV SCH (17:15)
[2024-08-03] MEDS ORDERED: CEFTRIAXONE SODIUM 2,000 MG in 0.9 % SODIUM CHLORIDE 100 ML IV SCH (20:12)
[2024-08-03] MEDS ORDERED: ONDANSETRON HCL 4 MG in 0.9 % SODIUM CHLORIDE 50 ML IV PRN (20:15)
[2024-08-03] MEDS ORDERED: RINGERS SOLUTION,LACTATED 1,000 ML IV SCH (20:30)
[2024-08-03] MEDS ORDERED: CEFTRIAXONE SODIUM 2,000 MG VIAL ONE (20:35)
[2024-08-03 23:00] VITALS: BP 82/62; O2SAT 100
[2024-08-03 23:38] LABS: MAGNESIUM 1.6 mg/dL (1.8-2.4); PHOSPHOROUS 5.7 mg/dL (2.5-4.9)
[2024-08-03 23:40] LABS: C-REACTIVE PROTEIN 17.8 MG/DL (0.00-0.29)
[2024-08-04] VITALS (8 sets, daily range): BP systolic 70–99; BP diastolic 56–71; O2SAT 95–100
[2024-08-04] MEDS ORDERED: LEVOTHYROXINE SODIUM 125 MCG TABLET PO SCH (06:00)
[2024-08-04] MEDS ORDERED: PANTOPRAZOLE SODIUM 40 MG/VIAL VIAL IV SCH (09:00)
[2024-08-04] MEDS ORDERED: MAGNESIUM SULFATE IN WATER 50 ML IV NR (21:00)
[2024-08-05] VITALS (9 sets, daily range): BP systolic 80–101; BP diastolic 48–63; O2SAT 96–100
[2024-08-05 04:34] LABS: C-REACTIVE PROTEIN 12.6 MG/DL (0.00-0.29); MAGNESIUM 1.7 mg/dL (1.8-2.4); PHOSPHOROUS 4.6 mg/dL (2.5-4.9)
[2024-08-05 04:36] LABS: ALBUMIN 2.5 gm/dL (3.4-5.0); BILIRUBIN TOTAL 1.26 mg/dL (0.3-1.2); CREATININE SERUM 1.33 mg/dL (0.70-1.30); GFR 53.96; GLOBULINA 3.8 G/DL (2.4-3.5); POTASSIUM 3.91 mEq/L (3.5-5.1); TOTAL PROTEIN 6.3 gm/dL (6.4-8.2)
[2024-08-05 04:37] LABS: C-REACTIVE PROTEIN 12.9 MG/DL (0.00-0.29)
[2024-08-05] MEDS ORDERED: CYANOCOBALAMIN (VITAMIN B-12) 1,000 MCG/ML VIAL IM SCH (09:00)
[2024-08-05] MEDS ORDERED: FOLIC ACID 1 MG TABLET PO SCH (09:00)
[2024-08-05 09:06] LABS: HEMATOCRIT 35.2 % (39.0-48.0); HEMOGLOBIN 12.1 g/dL (13-16.00); MEAN CELL VOLUME 91.4 fL (80.0-100.00); MEAN CORPUSCULAR HEMOGLOBIN 31.4 pg (27.00-32.0); MEAN CORPUSCULAR HGB CONC 34.3 g/dl (32.0-36.0); PLATELET COUNT 168 K/uL (150-450); RED BLOOD COUNT 3.85 M/uL (4.00-6.00); RED CELL DISTRIBUTION WIDTH 14.5 % (11.5-14.5)
[2024-08-05] MEDS ORDERED: COSYNTROPIN 0.25 MG VIAL IV NR (09:25)
[2024-08-05 10:24] LABS: ALBUMIN 2.6 gm/dL (3.4-5.0); BILIRUBIN TOTAL 1.27 mg/dL (0.3-1.2); CALCIUM 8.3 mg/dL (8.5-10.1); CREATININE SERUM 1.15 mg/dL (0.70-1.30); GFR 63.82; GLOBULINA 3.9 G/DL (2.4-3.5); POTASSIUM 4.67 mEq/L (3.5-5.1); TOTAL PROTEIN 6.5 gm/dL (6.4-8.2)
[2024-08-05] MEDS ORDERED: THIAMINE HCL 100 MG/ML 2 ML VIAL IV SCH (17:00)
[2024-08-05] MEDS ORDERED: VITAMIN B COMPLEX 1 EACH PO SCH (17:00)
[2024-08-05] MEDS ORDERED: MULTIVIT INFUSN,ADULT 4,VIT K 10 ML VIAL IV SCH (17:00)
[2024-08-06] VITALS (9 sets, daily range): BP systolic 67–90; BP diastolic 58–63; O2SAT 96–100
[2024-08-06] MEDS ORDERED: MORPHINE SULFATE 4 MG/ML CARTRIDGE IV PRN (02:00)
[2024-08-06] MEDS ORDERED: PREDNISONE 5 MG TABLET PO SCH (09:00)
[2024-08-07 00:35] VITALS: O2SAT 99
[2024-08-07 02:00] VITALS: BP 76/58; O2SAT 99
[2024-08-07] MEDS ORDERED: SODIUM CL 0.9% 50 ML IV.SOLN IV ONE (02:56)
[2024-08-07 09:28] VITALS: BP 96/78
[2024-08-07 22:06] VITALS: O2SAT 99
[2024-08-08] VITALS (9 sets, daily range): BP systolic 90–105; BP diastolic 67–82; O2SAT 96–100
[2024-08-08] MEDS ORDERED: PREDNISONE 1 MG TABLET PO SCH (17:00)
[2024-08-09] VITALS (10 sets, daily range): BP systolic 89–136; BP diastolic 61–74; O2SAT 95–100
[2024-08-09] MEDS ORDERED: MORPHINE SULFATE 4 MG/ML CARTRIDGE IV PRN (05:00)
[2024-08-09] MEDS ORDERED: PANTOPRAZOLE SODIUM 40 MG TABLET.DR PO SCH (09:00)
[2024-08-09 12:40] LABS: HEMATOCRIT 35.9 % (39.0-48.0); HEMOGLOBIN 11.9 g/dL (13-16.00); MEAN CELL VOLUME 91.8 fL (80.0-100.00); MEAN CORPUSCULAR HEMOGLOBIN 30.3 pg (27.00-32.0); RED BLOOD COUNT 3.92 M/uL (4.00-6.00); RED CELL DISTRIBUTION WIDTH 14.8 % (11.5-14.5)
[2024-08-09 12:56] LABS: PLATELET COUNT 139 K/uL (150-450)
[2024-08-09] MEDS ORDERED: LACTOBACILLUS ACIDOPHILUS 1 CAP CAP PO SCH (18:11)
[2024-08-09] MEDS ORDERED: CHOLESTYRAMINE/ASPARTAME LIGHT 4 G/PKT PACKET PO SCH (18:12)
[2024-08-10] VITALS (9 sets, daily range): BP systolic 95–111; BP diastolic 66–72; O2SAT 95–100
[2024-08-10] MEDS ORDERED: SODIUM CHLORIDE 0.9% IV SCH (05:00)
[2024-08-10] MEDS ORDERED: MORPHINE SULFATE IV SCH (05:00)
[2024-08-10] MEDS ORDERED: CHOLECALCIFEROL (VITAMIN D3) 5,000 UNITS TABLET PO SCH (09:00)
[2024-08-11] VITALS (7 sets, daily range): BP systolic 97–111; BP diastolic 62–76; O2SAT 91–100
[2024-08-11] MEDS ORDERED: CHOLESTYRAMINE L4 GM PO (16:51)
[2024-08-11] MEDS ORDERED: PANTOPRAZOLE SO40 MG PO (16:52)
[2024-08-11] MEDS ORDERED: PREDNISONE 5MG PO (16:52)
[2024-08-11] MEDS ORDERED: VITAMIN D3125 MC2 PO (16:53)
[2024-08-11] MEDS ORDERED: Prednisone PO (16:53)
== END 2024-08-11 19:33 | disposition home or self-care (01) | DRG 683 ==
LOC: ER 12:32 → SEC-K 20:43 → MEDJ 20:43
PROVIDERS: General Practice; Internal Medicine; Internal Medicine Hematology & Oncology; Internal Medicine Infectious Disease; ADMIT Internal Medicine; ATTEND Internal Medicine
PROC: 4A12X4Z Monitoring of Cardiac Electrical Activity, External Approach (ICD-10-PCS; principal; 2024-08-04)
DX: N17.9 Acute kidney failure, unspecified (principal); C22.0 Liver cell carcinoma; E27.49 Other adrenocortical insufficiency; E87.20 Acidosis, unspecified; N39.0 Urinary tract infection, site not specified; E46 Unspecified protein-calorie malnutrition; I50.30 Unspecified diastolic (congestive) heart failure; G89.3 Neoplasm related pain (acute) (chronic); N18.9 Chronic kidney disease, unspecified; E86.0 Dehydration; E03.9 Hypothyroidism, unspecified; I95.9 Hypotension, unspecified; E87.6 Hypokalemia; I25.10 Atherosclerotic heart disease of native coronary artery without angina pectoris; D63.0 Anemia in neoplastic disease